=== PATIENT | female | born 1940 | race Caucasian/White ===

== ENCOUNTER → 2018-11-16 | Outpatient (REF) ==
[~2018-11-16] MED LIST: ADVAIR DISK1 INH; ALLEGRA180 M1 OR; ALLEGRA180 MG PO; ALPRAZOLAM0.25 M1 PO; AMBIEN10 MG PO; ARICEPT10 MG PO; D31000 UNI1 PO; DEPAKOTE500 MG PO; DONEPEZIL HCL5 MG PO; ESCITALOPRAM OX10 MG PO; FOLIC ACID1 M1; FOSINOPRIL40 MG PO; FUROSEMIDE20 MG PO; LANTUS100 MG/ML SC; LASIX 20 MG TAB20 MG PO; LEVOTHYROXIN75 MC1 PO; LOPRESSOR 550 MG/TAB PO; LOPRESSOR50 MG PO; LORTAB5 PO; METOCLOPRAM5 MG PO; METOPROL TAR100 MG PO; NAMENDA10 MG PO; NEURONTIN100 MG PO; NORCO1 TA1 PO; NORVASC2.5 MG PO; NORVASC5 MG PO; NOVOLIN 70/30 SC; NOVOLOG MIX SC; OLANZAPINE5 MG PO; PANTOPRAZOLE SO40 MG PO; PLAVIX75 MG PO; RISPERDAL0.5 MG PO; TEMAZEPAM15 MG PO; ULTRAM50 MG PO; VITAMIN D50000 UN1 PO; VOLTAREN1%GEL TOP; WELCHOL3.75 GM PO; WELLBUTRIN SR150 MG PO; WELLBUTRIN XL OR; XANAX0.5 MG PO
== END | disposition home or self-care (01) | DRG 700 ==
LOC: LAB 10:16
PROVIDERS: ATTEND Internal Medicine
DX: E11.29 Type 2 diabetes mellitus with other diabetic kidney complication (principal)